=== PATIENT | female | born 1965 | race Caucasian/White ===

== ENCOUNTER 2018-08-10 11:44 | Emergency (ER) | payer OTHER ==
[~2018-08-10] VITALS: Ht 160 cm; Wt 43.5 kg
[2018-08-10 11:46] VITALS: Ht 160 cm; Wt 43.5 kg
[2018-08-10 14:09] VITALS: BP 125/78
== END 2018-08-10 14:09 | disposition home or self-care (01) ==
LOC: ED 11:44
DX: N10 Acute pyelonephritis (principal); I10 Essential (primary) hypertension; Z88.5 Allergy status to narcotic agent
CPT/HCPCS: J0696; J3010; J7030

== ENCOUNTER → 2020-12-16 | Outpatient (CLI) | payer OTHER, SELFPAY ==
[~2020-12-16] VITALS: Ht 160 cm; Wt 44.5 kg
[~2020-12-16] MED LIST: LIPI10 PO; LOP50 PO; LUMIGAN2.5 M1 OP; NOR5 PO; TENORMIN25 MG PO
[2020-12-16 12:53] LABS: PLATELET COUNT 274 x10^3mcL (179-408)
[2020-12-16 13:03] LABS: BILIRUBIN TOTAL 0.2 mg/dL (0.20-1.00); CALCIUM 9.2 mg/dL (8.5-10.1); CARBON DIOXIDE 29.8 mmol/L (21-32); CREATININE SERUM 2.5 mg/dL (0.6-1.0)
[2020-12-16 13:05] LABS: BASOPHIL % 2.2 % (0.2-1.3); RED CELL DISTRIBUTION WIDTH 14.8 % (12.3-17.7)
[2020-12-16 13:07] LABS: ALBUMIN 2.7 g/dL (3.4-5.0)
[2020-12-16 13:08] LABS: POTASSIUM SERUM 5.7 mmol/L (3.5-5.1); TOTAL PROTEIN, SERUM 6.9 g/dL (6.4-8.2)
== END | disposition home or self-care (01) ==
LOC: RD 10:00 → OR 12-20 07:30 → DS 12-20 07:30 → EDSTATUS 12-20 07:30
PROVIDERS: ATTEND Urology
DX: N13.30 Unspecified hydronephrosis (principal)

== ENCOUNTER 2020-12-29 06:30 | Day surgery (SDC) | payer OTHER, SELFPAY ==
[2020-12-27 12:05] LABS: BASOPHIL % 1.5 % (0.2-1.3); PLATELET COUNT 323 x10^3mcL (179-408)
[2020-12-27 12:07] LABS: RED CELL DISTRIBUTION WIDTH 15.2 % (12.3-17.7)
[2020-12-27 12:22] LABS: BILIRUBIN TOTAL 0.2 mg/dL (0.20-1.00); CALCIUM 8.6 mg/dL (8.5-10.1); CARBON DIOXIDE 29.7 mmol/L (21-32); CREATININE SERUM 2.4 mg/dL (0.6-1.0)
[2020-12-27 12:26] LABS: POTASSIUM SERUM 5.9 mmol/L (3.5-5.1)
[2020-12-27 12:27] LABS: ALBUMIN 2.9 g/dL (3.4-5.0)
[~2020-12-29] VITALS: Ht 160 cm; Wt 44.5 kg
[2020-12-29 06:43] VITALS: BP 139/68
[2020-12-29 07:36] LABS: CALCIUM 8.9 mg/dL (8.5-10.1); CARBON DIOXIDE 25.3 mmol/L (21-32); CREATININE SERUM 2.2 mg/dL (0.6-1.0)
[2020-12-29 11:31] VITALS: BP 133/66
== END 2020-12-29 11:15 | disposition home or self-care (01) ==
LOC: DS 06:30 → OR 07:30 → DS 11:15
PROVIDERS: ATTEND Urology
DX: N13.30 Unspecified hydronephrosis (principal); N31.9 Neuromuscular dysfunction of bladder, unspecified; N39.0 Urinary tract infection, site not specified; I12.9 Hypertensive chronic kidney disease with stage 1 through stage 4 chronic kidney disease, or unspecified chronic kidney disease; N18.9 Chronic kidney disease, unspecified
CPT/HCPCS: J0696; J1170; J2001; J2405; J2704; J3010; J7030; J7120